=== PATIENT | female | born 1960 | race Caucasian/White ===

== ENCOUNTER 2021-10-09 08:51 | Outpatient (CLI) | payer OTHER, SELFPAY ==
--- NOTE | 2021-10-09 08:52 | EST_ITS ---
Patient Info Name: Peg Fleming Age: 61 years : 1960 Gender: Female Ht: 70 in Wt: 210 lbs BSA: 2.19 m2 Exam Date: 10/09/2021 9:11 AM Exam Location: [facility] Patient Status: Outpatient Admit Date: 10/09/2021 Staff Ordering Physician: Ana Laura Hoover MD Attending Provider: Ana Laura Hoover MD Exercise Technologist: Iona Blanc RDCS Exercise Physician: Lul Camacho DO Exam Type: CA stress test treadmill Study Info Indications R93.1 - Abnormal findings on diagnostic imaging of heart and coronary circulation A treadmill exercise stress test was performed. Summary 1. 1. Negative Ren[facility] exercise stress test for ischemic ST changes by ECG criteria. 2. 2. Good functional capacity, achieving 8 METs of workload. 3. 3. Hypertensive response to exercise. 4. 4. Appropriate HR response to exercise. 5. 5. Appropriate HR recovery at 1 minute post exercise. 6. 6. No imaging with stress testing. 7. 7. Patient informed of the above results. Protocol: [facility] ECG Details Stage: REST Duration (min): 2 min : 29 sec Speed (mph): 0.0 Grade (%): 0 HR (bpm): 62 SBP (mmHg): 132 DBP (mmHg): 82 METS: --- Stage: REST Duration (min): 3 min : 25 sec Speed (mph): 0.0 Grade (%): 0 HR (bpm): 75 SBP (mmHg): 132 DBP (mmHg): 82 METS: --- Stage: STAGE 1 Duration (min): 1 min : 0 sec Speed (mph): 1.7 Grade (%): 10 HR (bpm): 87 SBP (mmHg): 132 DBP (mmHg): 82 METS: --- Stage: STAGE 1 Duration (min): 2 min : 0 sec Speed (mph): 1.7 Grade (%): 10 HR (bpm): 99 SBP (mmHg): 132 DBP (mmHg): 82 METS: --- Stage: STAGE 1 Duration (min): 3 min : 0 sec Speed (mph): 1.7 Grade (%): 10 HR (bpm): 106 SBP (mmHg): 177 DBP (mmHg): 62 METS: --- Stage: STAGE 2 Duration (min): 1 min : 0 sec Speed (mph): 2.5 Grade (%): 12 HR (bpm): 118 SBP (mmHg): 177 DBP (mmHg): 62 METS: --- Stage: STAGE 2 Duration (min): 2 min : 0 sec Speed (mph): 2.5 Grade (%): 12 HR (bpm): 128 SBP (mmHg): 209 DBP (mmHg): 56 METS: --- Stage: STAGE 2 Duration (min): 3 min : 0 sec Speed (mph): 2.5 Grade (%): 12 HR (bpm): 138 SBP (mmHg): 209 DBP (mmHg): 56 METS: --- Stage: STAGE 3 Duration (min): 0 min : 33 sec Speed (mph): 3.4 Grade (%): 14 HR (bpm): 146 SBP (mmHg): 209 DBP (mmHg): 56 METS: --- Stage: RECOVERY Duration (min): 0 min : 26 sec Speed (mph): 0.0 Grade (%): 0 HR (bpm): 139 SBP (mmHg): 222 DBP (mmHg): 62 METS: --- Stage: RECOVERY Duration (min): 1 min : 26 sec Speed (mph): 0.0 Grade (%): 0 HR (bpm): 108 SBP (mmHg): 225 DBP (mmHg): 67 METS: --- Stage: RECOVERY Duration (min): 2 min : 26 sec Speed (mph): 0.0 Grade (%): 0 HR (bpm): 87 SBP (mmHg): 225 DBP (mmHg): 67 METS: ---
== END 2021-10-09 08:52 | disposition home or self-care (01) ==
LOC: ANHCARD 08:52
PROVIDERS: PCP Family Medicine; Visit Provider Family Medicine
DX: R93.1 Abnormal findings on diagnostic imaging of heart and coronary circulation (principal); E78.2 Mixed hyperlipidemia; R68.89 Other general symptoms and signs
CPT/HCPCS: 93017

== ENCOUNTER 2023-02-03 08:10 | Outpatient (CLI) | payer OTHER, SELFPAY ==
--- NOTE | 2023-02-03 08:42 | ECG_ITS ---
Measurements Intervals [place] Rate: 52 P: 32 WV: 167 QRS: 19 QRSD: 97 T: 61 QT: 429 QTc: 400 Interpretive Statements SINUS BRADYCARDIA NO PREVIOUS ECG AVAILABLE FOR COMPARISON Electronically Signed On 02-03-2023 20:51:43 CORPORATE TRAFFIC MANAGER by Clary Carlson M.D.
[2023-02-03 09:05] LABS: Anion Gap 9 mmol/L (8-16); Blood Urea Nitrogen 16 mg/dL (7-17); Calcium 9.3 mg/dL (8.4-10.2); Carbon Dioxide 27 mmol/L (22-30); Chloride 102 mmol/L (98-107); Estimated Glomerular Filt Rate > 60; Glucose 105 mg/dL (65-110); Sodium 138 mmol/L (137-145)
[2023-02-03 11:26] LABS: Alanine Aminotransferase 39 U/L (6-35); Albumin Level 4.5 g/dL (3.5-5.1); Alkaline Phosphatase 61 U/L (38-126); Aspartate Amino Transferase 30 U/L (14-36); Bilirubin,Total 0.5 mg/dL (0.2-1.3)
== END 2023-02-03 08:11 | disposition home or self-care (01) ==
PROVIDERS: PCP Family Medicine; Visit Provider Anesthesiology
DX: Z01.818 Encounter for other preprocedural examination (principal)
CPT/HCPCS: 36415; 80048; 80076; 93005

== ENCOUNTER 2023-02-05 09:24 | Day surgery (SDC) | payer OTHER, SELFPAY ==
[2023-01-28 14:05] VITALS: BMI 30.9
--- NOTE | 2023-02-04 12:18 | WPDANESEPPF ---
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 Patient Data Age: 63 Gender: F Height: 1.78 m Weight: 98 kg Allergies Allergy/AdvReac Type Severity Reaction Status Date / Time minocycline Allergy Unknown Skin Verified 02/05/23 10:17 Reaction Penicillins Allergy Unknown Skin Verified 02/05/23 10:17 Reaction Home Medications Medication Instructions Recorded Confirmed Type cholecalciferol (vitamin D3) 125 125 mcg PO DAILY 09/05/19 02/05/23 History mcg (5,000 unit) tablet calcium carbonate 600 mg calcium 600 mg PO DAILY 07/11/20 02/05/23 History (1,500 mg) tablet (Calcium) sertraline 25 mg tablet 25 mg PO DAILY 01/22/22 02/05/23 History alendronate 70 mg tablet 70 mg PO WEEKLY #12 tabs 04/27/22 02/05/23 Rx pravastatin 80 mg tablet 80 mg PO QHS #90 tabs 09/02/22 02/05/23 Rx metoprolol succinate 50 mg 50 mg PO DAILY #90 tabs 11/09/22 02/05/23 Rx tablet,extended release 24 hr losartan 100 mg tablet See Rx Instructions .Route 11/13/22 02/05/23 Rx .COMPLEX #90 tabs spironolactone 50 mg tablet 50 mg PO QAM #90 tabs 01/28/23 02/05/23 Rx Patient hx anesthesia problems: none Family hx anesthesia problems: none Results Review: All pre-operative results and documents have been reviewed as part of the pre-operative evaluation. [facility] Past Medical History Medical History (Updated 02/04/23 @ 12:19 by Joe Mata DO) Essential hypertension Herpesviral infection, unspecified Mixed hyperlipidemia 6.13.22 ct calcium score: 152 ( LM-0, LAD 101, LCX 152, RCA 17) Surgical History Surgical History (Updated 02/04/23 @ 12:19 by Joe Mata DO) History of hysterectomy Family History Family History Mother Diabetes mellitus Hypertension Family history of congestive heart failure Father Hypertension, Onset Age: 45 Grandparent Family history of cardiovascular disease Cerebrovascular accident Family history of malignant neoplasm of breast Social History Social History (Updated 01/26/23 @ 15:44 by Melyssa Motley MA) Smoking status: Never smoker Second hand tobacco smoke exposure: No Alcohol intake: current Alcohol use details: socially Substance use: never Substance use type: does not use Do You Feel Safe in your Home?: Yes Lack of Transportation: No Lack of Food: Never True Current Housing: I Have Housing Concerned About Future Housing: No Difficulty Paying Gas/Electric Bills: No Difficulty Paying for Meds: No Currently Unemployed: No Education: Master's Degree or Higher Difficulty w/ Childcare or Family Care: No Living arrangements: with family Spiritual care concerns: No Anes - Eval Final PreProcedure Day of Procedure 02/04/23 12:18 Patient weight: obese Heart: regular rate and rhythm Lungs: clear to auscultation Airway: Mallampati scale class II Neurological: alert and oriented Last oral intake: >/= 8 hours ASA classification: III Emergent: no Anesthetic plan: proceed Anesthesia type and monitoring: general LMA and standard monitoring Results Review: All pre-operative results and documents have been reviewed as part of the pre-operative evaluation. Informed Consent: The patient's anesthetic plan and its attendant risks and benefits were discussed with the patient/family/POA. Questions were solicited and answers provided to the satisfaction of the patient/family/POA.
[2023-02-05] VITALS (10 sets, daily range): BP systolic 120–136; BP diastolic 64–87; PULSE 49–95; RESP 10–16; TEMP 35.9–36.7; O2SAT 95–100
--- NOTE | ~2023-02-05 | XR_ITS ---
EXAMINATION: XR fluoroscopy no charge DATE: 02/05/2023 11:44 INDICATION: Left foot first metatarsophalangeal arthrodesis. TECHNIQUE: 2 fluoroscopic images of the left forefoot were obtained during procedure performed by Dr. Kasper. Radiologist was not present for the imaging or procedure. The amount of fluoroscopy time u sed during this procedure was 0.1 minutes. COMPARISON: None. FINDINGS: First metatarsophalangeal arthrodesis with dorsal plate and screw fixation which appears in near-liberty omic alignment. There is also a bunionectomy with osteotomy at the medial head of the first metatarsa l. No fracture. Remaining profiled joint spaces appear normal. IMPRESSION: 1. Near-anatomic alignment post first metatarsophalangeal estimated arthrodesis. Reviewed, dictated and finalized at location A. WARE QUALITY TEST ENGINEER IMPRESSION: 1. Near-anatomic alignment post first metatarsophalangeal estimated arthrodesis .
--- NOTE | 2023-02-05 07:05 | WPDHPUPDATE1 ---
History and Physical Update Update Date/Time: 02/05/23 07:05 History and Physical has been reviewed, including an updated exam of the patient. There are NO changes in the patient's condition. Risks, benefits, and alternatives have been discussed and questions answered. Patient agrees to proceed with procedure.
[2023-02-05] MEDS: LACTATED RINGERS 1,000 ML 30 ML IV CONT (10:19)
--- NOTE | 2023-02-05 10:23 | SUR.PREOP ---
Pt has Penicillin allergy but states takes cephalosporins with no problems or adverse reactions.
[2023-02-05] MEDS: ceFAZolin SODIUM 2 GM/20 ML SW SYRINGE IV PUSH (10:50)
[2023-02-05] MEDS: LIDOCAINE HCL 2% LOCAL INJ 20 ML VIAL 10 ML INFILTRATE (11:39)
[2023-02-05] MEDS: fentaNYL CITRATE INJ (*CRX) 100 MCG/2 ML VIAL 25 MCG IV PUSH (12:08)
--- NOTE | 2023-02-05 12:24 | W.PM.PROC2 ---
Procedure Note - Detailed Date of Procedure 02/05/23 Pre-op Diagnosis Arthritic Bunion Left Foot Post-op Diagnosis Same Procedure Performed Arthrodesis of the first metatasal phalangeal joint left foot Surgeon Thierno Kasper JR, CESAR Anesthesia General and Regional Indications Painful right forefoot Description of Procedure PROCEDURE IN DETAIL: Under mild sedation, the patient was brought into the operating room, placed on the operating table in supine position. A pneumatic ankle tourniquet was placed about the patient's ipsilateral ankle. Following general LMA, and a regional nerve block anesthesia the foot was then scrubbed, prepped, and draped in the usual aseptic manner. An Esmarch bandage was then used to exsanguinate the patient's foot and the pneumatic ankle tourniquet was then inflated. Surgery began in the following manner: Attention was directed to the dorsal aspect of the 1st metatarsophalangeal joint where there was a large subcutaneous prominence noted along the dorsomedial aspect of the joint. The incision was made starting along the central shaft of the 1st metatarsal and extending just proximal to the interphalangeal joint of the hallux. The incision was continued deep down through the subcutaneous tissues using sharp and blunt dissection. All bleeders were cauterized as necessary. At this point, the dissection was continued down to the level of the periosteum and capsular structures overlying the 1st metatarsophalangeal joint. A full length periosteum and capsular incision was made just medial to the extensor hallucis longus tendon. The periosteum and capsular structures were freed from the base of the proximal phalanx as well as the distal 1st metatarsal. At this point, the 1st metatarsophalangeal joint was identified. There was almost complete loss of articular cartilage to the head of the 1st metatarsal as well as the base of the proximal phalanx. There was significant broadening and hypertrophy of the 1st metatarsophalangeal joint. Utilizing a sagittal bone saw, the hypertrophied 1st metatarsal was resected dorsally, medially, and laterally. A power bur was used to make sure that there were no rough edges and also to further debride the hypertrophic 1st metatarsal. Next, a rongeur was used to resect all hypertrophic base of the proximal phalanx. At this point, the reamer system for the [place] system was used to denude the degenerative cartilage from the head of the 1st metatarsal as well as the base of the proximal phalanx. The cartilage and subchondral bone were fully debrided utilizing the reamer system until healthy bleeding bone was noted. Next, a 2-0 drill bit was used to further fenestrate the head of the 1st metatarsal as well as the base of the proximal phalanx in order to allow fusion across the 1st metatarsophalangeal joint. Next, a 0.045 inch K-wire was driven from the medial aspect of the base of the proximal phalanx into the head of the 1st metatarsal in order to serve as temporary fixation. A large steel plate was used to make sure that the hallux was in a rectus position both in the sagittal plane as well as the frontal and transverse plane. Excellent position of the hallux was noted. Next, a CrossCHECK plate was placed atop the 1st metatarsophalangeal joint held in position with [place] wires. Utilizing standard principles and techniques, the 2 distal drill holes were drilled and two 2.7mm mm fully-threaded locking screws were driven from dorsal to plantar holding the distal aspect of the plate intact. At this point, a 3.5mm lag screw was driven from dorsal distal to proximal plantar across the 1st metatarsophalangeal joint through the plate system with excellent compression noted after careful removal of the olive wire and temporary fixation from the 1st metatarsophalangeal joint. Next, 2 proximal drill holes were drilled from dorsal to plantar across and two 2.7 mm locki
--- NOTE | 2023-02-05 12:26 | WPDANESPNB ---
Anes - Peripheral Nerve Block Date/Time: 02/05/23 12:26 I have discussed with the patient/family/POA the placement of a peripheral nerve block for post-operative pain management, including associated risks, benefits, complications, and side effects. Alternative methods of post-operative analgesia were detailed. Questions were solicited and answers provided to the satisfaction of the patient/family/POA. Time-Out: A pre-procedural Time-Out was completed immediately before starting the procedure and confirmed: Patient Identification, Site, Procedure, Patient Position and the Availability of Requisite Equipment. Clinical Indications: Acute post-operative pain management requested by the operative surgeon. Nerve Block Insertion Note Anes-nerve block: posterior fossa sciatic left and adductor canal left Patient position: supine (for adductor canal) and other (right lateral for popliteal) Skin prep: chlorhexidine Needle: 22 gauge, stimulating, insulated echogenic needle. Needle length: 80 mm Technique: nerve stimulation lost at (mA) (for popliteal lost at 0.2) and ultrasound Injectate: bupivacaine 0.5% with epi 5 mcg/ml (20 mL for popliteal, 10 mL for adductor canal (no epi)) Observations: tolerated well Complications: none Procedure start time:: 1036 Procedure end time:: 1040
--- NOTE | 2023-02-05 12:37 | WPDANESPN ---
Anes - Prog Note Post-Op Date/Time: 02/05/23 12:37 Cardiovascular status: normal Respiratory status: normal Airway patency: baseline Mental status: baseline Post-Op hydration status: normal Vital Signs: Last Vital Signs Temp 36.6 C 02/05/23 12:29 Pulse 51 L 02/05/23 12:29 Resp 16 02/05/23 12:29 BP 137/73 02/05/23 12:29 Pulse Ox 100 02/05/23 12:29 O2 Del Method Simple Face Mask 02/05/23 12:29 O2 Flow Rate 6 02/05/23 12:29 Pain Score (VAS): 2 I/O: Intake & Output 02/04/23 02/05/23 02/05/23 23:59 07:59 15:59 Intake Total 600 Balance 600 Post-procedural complaints: none Patient Feedback: Patient satisfied with anesthetic care. Other Findings: Patient vital signs back to baseline. Patient denies nausea and vomiting. Patient's pain under control. Patient OK for discharge.
--- NOTE | 2023-02-05 13:08 | SUR.PHASEI ---
1155- patient arrives to pacu #1 on back. placed on monitor, vs per monitor, temp obtained, and niru warmer placed. report received from OR nurse and anesthesia. patient is sitting up 30 degrees and c/o left foot pain, 5/10 unable to obtained pulses d/t cast. left toes have good cap refill less than 2 secs. left pop. pulse present. 1205-patient still c/o left foot pain, 6/10 and treated with ice and pain medication. anesthesia at bedside discussing nerve block with patient and her occupation. 1210-patient resting with eyes closed, occasionally asks what her blood pressure is. vss. patient reports improvement in pain as 2/10 . 1225-patient is awake and alert and talking. a/ox3, vss. 1245-report given to recovery nurse wade martines. patient requests po pain medications prior to leaving since she has not picked up her prescriptions from her pharmacy yet.
[2023-02-05] MEDS: oxyCODONE HCL (*CRX) 5 MG TAB IR PO (13:28)
== END 2023-02-05 13:45 | disposition home or self-care (01) ==
PROVIDERS: PCP Family Medicine; Visit Provider Podiatrist Foot & Ankle Surgery
PROC: (CPT 28750; principal; 2023-02-05 10:00)
DX: M21.612 Bunion of left foot (principal)
CPT/HCPCS: 28750; L8699; 99199